=== PATIENT | male | born 1970 | race African-American/Black ===

== ENCOUNTER 2018-04-08 20:30 | Inpatient (IN) | payer MEDICAID, OTHER ==
[2018-04-08] MEDS ORDERED: fentaNYL* 50 MCG/ML 2 ML VIAL (100 MCG VIAL) IV ONE (20:51)
[2018-04-08] MEDS ORDERED: Nitroglycerin 2% OINT* 1 GM PAK TOPICAL ONE (20:51)
[2018-04-08] MEDS ORDERED: nitroGLYCERIN DRIP* 25,000 MCG/250 ML BTL IV ONE (21:37)
[2018-04-08 21:39] LABS: ABS Basophils 0.1 10^3/ul (0-0.2); ABS Eosinophils 0.1 10^3/ul (0-0.6); ABS Monocytes 0.3 10^3/ul (0-0.8); ABS Neutrophils 2.1 10^3/ul (1.5-7.7); ABS Nucleated RBC 0 10^3/ul; Eosinophil % 1.2 % (0-6); Hematocrit 39 % (42-52); Hemoglobin 13.3 g/dl (14.0-18.0); Lymphocyte % 44.2 % (25-47); Mean Corpuscular HGB Conc 34 g/dl (31-36); Mean Corpuscular Hemoglobin 30 pg (27-31); Mean Corpuscular Volume 87 fL (80-94); Mean Platelet Volume 6.3 um3 (7.4-10.4); Nucleated Red Blood Cells % 0.1; Platelet Count 320 10^3/ul (150-450); Red Blood Count 4.48 10^6/ul (4.0-5.4); Red Cell Distribution Width 13 % (10.5-15); White Blood Count 4.4 10^3/ul (3.5-10.8)
[2018-04-08] MEDS ORDERED: Morphine INJ* 10 MG/ML 1 ML CARPUJECT IV ONE (21:39)
[2018-04-08] MEDS ORDERED: Heparin DRIP 25,000 UNITS(*) 25,000 UNITS/500 ML BAG IVPB ONE ×2 (21:39→22:00)
[2018-04-08] MEDS ORDERED: nitroGLYCERIN DRIP* 25,000 MCG in PREMIX* 0 ML IV ONE (21:39)
--- NOTE | 2018-04-08 21:49 | RAD ---
Indication: LEFT side chest pain radiating to the jaw and arm for 1.5 hours. History of coronary artery disease with previous myocardial infarctions. History of tobacco use. Comparison: No relevant prior exams available on the [facility] PACS for comparison. Technique: Upright AP 2112 hours Report: Clear lungs and pleural spaces. Negative for pneumothorax. The heart, pulmonary vasculature, and mediastinal contours are unremarkable. Unremarkable osseous structures and soft tissue contours. IMPRESSION: No evidence for acute intrathoracic disease.
[2018-04-08] MEDS ORDERED: Heparin VIAL(*) 5000 UNITS/ML VIAL (FIVE THOUSAND) IV SCH (22:00)
[2018-04-08] MEDS ORDERED: Heparin DRIP 25,000 UNITS(*) 25,000 UNITS/500 ML BAG IV SCH (22:30)
[2018-04-08 22:49] LABS: EGFR Non-African American 70.4 (>60)
[2018-04-08] MEDS ORDERED: Morphine VIAL* 4 MG/ML VIAL (1 ml vial) IV ONE (23:00)
[2018-04-08] MEDS ORDERED: Heparin DRIP 25,000 UNITS(*) 25,000 UNITS/500 ML BAG IVPB SCH (23:00)
[2018-04-08] MEDS ORDERED: fentaNYL* 50 MCG/ML 2 ML VIAL (100 MCG VIAL) IV SLOW PU ONE (23:53)
--- NOTE | 2018-04-09 01:42 | ED ---
Mars Perez Julia, scribed for Earle Huerta MD on 04/08/18 at 2053 . HPI Chest Pain - HPI Summary HPI Summary: This patient is a 48 year old M BIBA to [facility] with a chief complaint of sudden sharp chest pain radiating down left arm and into jaw starting about a half hour ago with tingling in the hands. Pain is 7/10 in severity. Chest pain resolved with Nitro x2, per EMS but has now returned as an aching pain. Reports mild SOB, and currently resolved diaphoresis. Denies nausea, recent illness, abdominal pain, and changes in appetite. PMHX of two MN and three stents. Last stent placed in 2009. One stent has 30-40% blockage a few years ago , according to patient. Current symptoms similar to previous MN. Allergic to ASA. Medications include metoprolol and simvastatin. Treated in [facility] for last MN. - History of Current Complaint Chief Complaint: EDChestPainROMI Time Seen by Provider: 04/08/18 20:44 Hx Obtained From: Patient Onset/Duration: Started Hours Ago, Still Present Time of Onset: 19:30 Timing: Lasting Hours Pain Intensity: 7 Pain Scale Used: 0-10 Numeric Chest Pain Location: Mid Sternal Chest Pain Radiates: Yes Chest Pain Radiates To:: Arm, Jaw Character: Sharp/Stabbing Aggravating Factor(s): Nothing Alleviating Factor(s): NTG 123, EMS Tx Associated Signs and Symptoms: Positive: Chest Pain, Tingling, Shortness of Breath, Diaphoresis. Negative: Nausea, Abdominal Pain Related History: Similar Episode/Dx as: - MN - Allergy/Home Medications Allergies/Adverse Reactions: Allergies Allergy/AdvReac Type Severity Reaction Status Date / Time aspirin Allergy Rash Verified 04/08/18 20:47 Home Medications: Home Medications Amlodipine Besylate 04/08/18 [History] Benztropine Mesylate 04/08/18 [History] Bupropion Xl 04/08/18 [History] Clopidogrel 04/08/18 [History] Gabapentin 04/08/18 [History] Haloperidol 04/08/18 [History] Lisinopril 04/08/18 [History] Metoprolol Succinate XL TAB* 04/08/18 [History] Nicotine Gum 04/08/18 [History] Nicotine Patch 04/08/18 [History] Nitroglycerin TAB 0.4 MG* 04/08/18 [History] Pantoprazole Sodium 04/08/18 [History] Prazosin CAP* 04/08/18 [History] Simvastatin 04/08/18 [History] Trazodone HCl 04/08/18 [History] Ventolin HFA Inhaler* 04/08/18 [History] PMH/Surg Hx/FS Hx/Imm Hx Cardiovascular History: Reports: Hx Coronary Artery Disease, Hx Hypertension, Hx Myocardial Infarction EENT History: Denies: Hx Deafness Infectious Disease History: No Infectious Disease History: Denies: Traveled Outside the [place] in Last 30 Days - Family History Known Family History: Positive: Hypertension - Social History Hx Substance Use: Yes Hx Tobacco Use: Yes Smoking Status (MU): Former Smoker Type: Cigarettes Review of Systems Positive: Skin Diaphoresis Positive: Chest Pain Positive: Shortness Of Breath Negative: Abdominal Pain, Nausea Positive: Myalgia - arm pain and jaw pain All Other Systems Reviewed And Are Negative: Yes Physical Exam - Summary Physical Exam Summary: Appearance: Well-appearing, Well-nourished, lying in bed comfortably Skin: Warm, dry, no obvious rash Eyes: sclera anicteric, no conjunctival pallor ENT: mucous membranes moist, pharynx appears normal Neck: Supple, nontender Respiratory: Clear to auscultation, no signs of respiratory distress Cardiovascular: Normal S1, S2. No murmurs. Normal distal pulses in tibial and radial bilaterally. Abdomen: Soft, nontender, normal active bowel sounds present Musculoskeletal: Normal, Strength/ROM Intact Neurological: A&Ox3, awake and alert, mentation is normal, speech is fluent and appropriate Psychiatric: affect is normal, does not appear anxious or depressed Triage Information Reviewed: Yes Vital Signs On Initial Exam: Initial Vitals Temp Pulse Resp BP Pulse Ox 98.2 F 70 16 132/88 99 04/08/18 20:44 04/08/18 20:44 04/08/18 20:44 04/08/18 20:44 04/08/18 20:44 Vital Signs Reviewed: Yes Diagnostics - Vital Signs Vital Signs Temp Pulse Resp BP Pulse Ox 04/08/18 20:44 98.2 F 70 16 132/88 99 - Laboratory Lab Results: Lab Results 04/08/18 Range/Units 21:32 WBC 4.4 (3.5-10.8) 10^3/ul RBC 4.48 (4.0-5.4) 10^6/ul Hgb 13.3 L (14.0-18.0) g/dl Hct 39 L (42-52) % MCV 87 (80-94) fL MCH 30 (27-31) pg MCHC 34 (31-36) g/dl RDW 13 (10.5-15) % Plt Count 320 (150-450) 10^3/ul MPV 6.3 L (7.4-10.4) um3 Neut % (Auto) 46.7 (38-83) % Lymph % (Auto) 44.2 (25-47) % [place] % (Auto) 6.6 (0-7) % Eos % (Auto) 1.2 (0-6) % Baso % (Auto) 1.3 (0-2) % Absolute Neuts (auto) 2.1 (1.5-7.7) 10^3/ul Absolute Lymphs (auto) 2.0 (1.0-4.8) 10^3/ul Absolute Monos (auto) 0.3 (0-0.8) 10^3/ul Absolute Eos (auto) 0.1 (0-0.6) 10^3/ul Absolute Basos (auto) 0.1 (0-0.2) 10^3/ul Absolute Nucleated RBC 0 10^3/ul Nucleated RBC % 0.1 Result Diagrams: 04/08/18 21:32 04/08/18 21:32 Lab Statement: Any lab studies that have been ordered have been reviewed, and results considered in the medical decision making process. - Radiology CXR Radiology Interpretation Completed By: Radiologist - No evidence for acute intrathoracic disease. ED Physician has reviewed this report. Re-Evaluation - Re-Evaluation First Re-Evaluation Time: 21:37 Change: Unchanged Comment: Patient is still having pain. Will place on IV nitro and heparin. His pain only went from 8 to 6 with topical ntg and he says it is identical in character and location to when he had MN. EKG is equivocal with deep Q waves in anteroseptal leads and slight ST elevation in V2 and V3, but we do not have any old tracing for comparison. Intermediate Frame Tender attempting to get prior tracings from [facility] in [place] where he was treated for MN in the past. Second Re-Evaluation Time: 23:51 Change: Unchanged Chest Pain Course/Dx - Diagnoses Provider Diagnoses: Acute coronary syndrome - Provider Notifications Discussed Care Of Patient With: Kojo Byrd - interventional cardiology Time Discussed With Above Provider: 00:10 Instructed by Provider To: Other - Will review patiet's records and will call back. At 00:22 Dr. Byrd suggests admission by hospitalist and will consult. uRdy hospitalist, agrees to admit at 00:54 Discharge - Sign-Out/Discharge Documenting (check all that apply): Discharge/Admit/Transfer - Discharge Plan Condition: Guarded Disposition: ADMITTED TO [facility] Referrals: No Primary Care Phys,NOPCP [Primary Care Provider] - - Billing Disposition and Condition Condition: GUARDED Disposition: [facility] The documentation as recorded by the Mars diane Julia accurately reflects the service I personally performed and the decisions made by me, Earle Huerta MD.
[2018-04-09] MEDS ORDERED: Nitroglycerin TAB 0.4 MG* 0.4 MG TAB SL PRN (02:32)
[2018-04-09] MEDS ORDERED: Acetaminophen TAB* 325 MG PO PRN (02:51)
[2018-04-09] MEDS ORDERED: Nicotine GUM* 2 MG PO PRN (03:00)
[2018-04-09] MEDS ORDERED: Albuterol HFA INHALER* 8 gm MDI INH PRN (03:00)
[2018-04-09 05:31] LABS: ABS Basophils 0 10^3/ul (0-0.2); ABS Eosinophils 0 10^3/ul (0-0.6); ABS Monocytes 0.4 10^3/ul (0-0.8); ABS Neutrophils 1.7 10^3/ul (1.5-7.7); ABS Nucleated RBC 0 10^3/ul; Eosinophil % 0.7 % (0-6); Hematocrit 37 % (42-52); Hemoglobin 12.8 g/dl (14.0-18.0); Lymphocyte % 57.7 % (25-47); Mean Corpuscular HGB Conc 34 g/dl (31-36); Mean Corpuscular Hemoglobin 30 pg (27-31); Mean Corpuscular Volume 87 fL (80-94); Mean Platelet Volume 6.4 um3 (7.4-10.4); Nucleated Red Blood Cells % 0.1; Platelet Count 306 10^3/ul (150-450); Red Blood Count 4.28 10^6/ul (4.0-5.4); Red Cell Distribution Width 13 % (10.5-15); White Blood Count 5.2 10^3/ul (3.5-10.8)
[2018-04-09 05:42] LABS: EGFR Non-African American 69.7 (>60)
--- NOTE | 2018-04-09 06:40 | HP ---
ADMITTING HISTORY AND PHYSICAL: DATE OF ADMISSION: 04/09/18. CHIEF COMPLAINT: Chest pain. HISTORY OF PRESENT ILLNESS/HOSPITAL COURSE: The patient is a 48-year-old - [place] gentleman with a history of hypertension, asthma, and CAD with three stents placed back at [facility], who presents with above chief complaint of chest pain. 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 He mentioned he suddenly started having some chest pain left sided that radiated to his left shoulder and arms as well as jaw. EMS was called and some PVCs were seen en route and with some questions of ST segment elevation in leads V1 or V2. Of note, the patient mentions that he was in his usual state of health and admitted himself in [facility] back in February for his alcohol addiction. He mentions that he usually lives in the city of [place] and usually follows with his physician at [facility]. However, currently in [place] in [facility] and being transitioned to be discharged to [facility] in [place] when he has done with rehab given that he mentions that, he is most likely going to relapse if he goes back to [place]. On presentation to the ED, a 12-lead was found, which suggests some possible ST segment elevation in leads V1 or V3. However, given that the patient has not been in our hospital until this visit, an EKG was obtained from old records at [facility] in [place], and from an EKG done in 04/26/13, it seems that the concerning ST segments in the aforementioned leads are old and in fact extends up until V4 in the anteroseptal leads, and these are nothing new. Furthermore, Dr. Huerta has spoken prior to my evaluation of the patient with Dr. Byrd, who also did not have the old EKG data from [place], who believed that the ST segments are probably old finding given only mildly elevated troponins on presentation, which has subsequently normalized. The patient kept on complaining of chest pain and was placed on a nitrate drip as well as heparin drip and I will continue this as well given his high risk and known cardiac history. The patient mentions that he similarly presented at [facility] in [place] back in January of this year and had a cardiac catheterization done, which revealed 40% blockage in one of his old stents and hence possible in-stent thrombosis was diagnosed and he was placed back on Plavix and some changes in his antihypertensive medications remain, and he was placed back on Plavix because of concern of in-stent thrombosis. PAST MEDICAL AND SURGICAL HISTORY: Past medical and surgical history of CAD, status post OH with three stents, hypertension, asthma, schizophrenia, alcohol abuse, polysubstance abuse with previous history of cocaine and opiate abuse, unstable angina. ALLERGIES: NSAIDS, which causes hives, and denies any other allergies, or any other food or medications. FAMILY HISTORY: Hypertension in his mother and father. Diabetes in his mother and father. SOCIAL HISTORY: He mentions that he quit smoking about five months ago, but previous to this he was smoking about 1.5 pack per day for 15 years. He has had a history of alcohol abuse, which he is currently in rehab for. Previous history of cocaine use. Last use was six years ago as well as oral opiate abuse. Last dose is unknown. He is single and has two children and will be transitioned to a alf house from [facility]. REVIEW OF SYSTEMS: The patient mentions that he still has a chest pain of 8/10 , but denied any shortness of breath. He denied any recent headache, dizziness , fevers, chills, nausea, vomiting, increased cough, sputum production, abdominal pain, diarrhea, constipation, pain and/or increased frequency on urination, myalgias, arthralgias, throat pain or new skin lesions. The rest of the 14-point review of systems are otherwise unremarkable. PHYSICAL EXAMINATION GENERAL: The patient is awake, alert, and oriented x3, not in acute distress. VITAL SIGNS: The most recent vital signs of record with blood pressure of 107/ 77, heart rate of 60 per minute, 13 per minute respiratory rate. HEENT: Normocephalic, atraumatic. PERRLA. Extraocular muscles intact. Negative for icterus. Moist oral mucosa. Negative throat erythema. NECK: Soft and supple with no cervical lymphadenopathy, no JVD. CHEST: Clear to auscultation bilaterally. Good air entry. No wheezes, rales or rhonchi. HEART: S1, S2 within normal limits. Regular rate and rhythm. No murmurs, rubs or gallops. ABDOMEN: Soft, nondistended, nontender. Normoactive bowel sounds x4 quadrants. EXTREMITIES: No cyanosis, clubbing or edema. PSYCHIATRIC: No active psychosis, depression, suicidal or homicidal ideations. DIAGNOSTIC STUDIES/LAB DATA: Laboratories and imaging have been reviewed. Please see chart for details. ASSESSMENT AND PLAN: Are as follows: 1. Chest pain with a history of coronary artery disease, with a SCAR score of 3. The patient is certainly at higher risk with mildly elevated troponin on presentation with known possible in-stent thrombosis at 40% blockage according to the patient back in January, which will need to be confirmed with [facility] s. We will continue the patient on Plavix because of his allergies to ASPIRIN. We will continue heparin drip as well as nitroglycerin drip as well as simvastatin. Given his previous opiate addiction and problems, I will not elect to give p.r.n. Morphine at this time given he is on a Nitro drip, and we will continue watchful waiting. We will place the patient on p.r.n. Tylenol for pain. We will trend cardiac enzymes for two more times. 2. Schizophrenia. The patient has ordered haloperidol decanoate and currently on benztropine. 3. History of asthma. Continue albuterol p.r.n. 4. Hypertension. Continue metoprolol and lisinopril, and we will continue watchful waiting. 5. Depression. The patient does not have any suicidal ideation or homicidal ideation. We will continue trazodone and bupropion. 6. DVT prophylaxis. The patient is on heparin drip given relatively high SCAR score with current cardiac history on presentation, possibly unstable angina. Consider calling assistant principal in a.m. for official consult. We will defer with primary team. 7. Disposition. For PT eval and we will recommend cardiology consultation given extensive cardiac history and possible in-stent thrombosis as related to by patient. [id number]/[facility] #: [id number] [facility]
[2018-04-09] MEDS: Gabapentin CAP(*) 300 MG PO SCH ×2 (08:42→13:45)
[2018-04-09] MEDS ORDERED: BuPROPion XL* 150 MG TAB.XL PO SCH (09:00)
[2018-04-09] MEDS ORDERED: Benztropine TAB* 2 MG PO SCH (09:00)
[2018-04-09] MEDS ORDERED: amLODIPine TAB* 5 MG PO SCH (09:00)
[2018-04-09] MEDS ORDERED: Lisinopril TAB* 10 MG PO SCH (09:00)
[2018-04-09] MEDS ORDERED: Metoprolol Succinate XL TAB* 50 MG PO SCH (09:00)
[2018-04-09] MEDS ORDERED: Nicotine PATCH 14 MG/24 HR* PATCH TRANSDERM SCH (09:00)
[2018-04-09] MEDS ORDERED: Clopidogrel TAB* 75 MG PO SCH (09:00)
--- NOTE | 2018-04-09 12:28 | ECHO ---
Patient: PATTIE WALTON [facility] Rec#: [id number] : 1970 Date: 04/09/2018 Age: 48y Height: 182.88 cm / 72.0 in Weight: 93.89 kg / 206.9 lbs Sex: M BSA: 2.16 Room#: ICU3 Admit Date#: 04/09/2018 Type: Inpatient Referring: Marjorie Webber MD Reading: Hussain Suarez MD Petroleum Transport Driver: Bea Langley [facility] Transthoracic Echocardiogram Indication: ACS BP: 111/74 HR: 49 Rhythm: Bradycardia Findings History: HTN,asthma,CAD with prior PCI,currently in an addiction recovery program,schizophrenic,former cigarette smoker. Technical Comments: The study quality is good. Completed at 0930. Left Ventricle: The left ventricular chamber size is normal. Mild concentric left ventricular hypertrophy is observed. There is mildly decreased left ventricular systolic function. The estimated ejection fraction is 45-50%. Abnormal left ventricular diastolic function is observed. The apical anterior, apical lateral, and apical inferior wall segments are hypokinetic (score 2). Overall wallmotion score index is 2.00 Left Atrium: The left atrial chamber size is normal. Right Ventricle: The right ventricular cavity size is normal. The right ventricular global systolic function is normal. Right Atrium: The right atrial cavity size is normal. Aortic Valve: The aortic valve is trileaflet. There is no evidence of aortic valve thickening. There is no evidence of aortic regurgitation. There is no evidence of aortic stenosis. Mitral Valve: The mitral valve leaflets are mildly thickened. There is mild mitral regurgitation. There is no evidence of mitral stenosis. Tricuspid Valve: The tricuspid valve leaflets are normal. Unable to estimate the right ventricular systolic pressure. No pulmonary hypertension is noted. There is no tricuspid stenosis. Pulmonic Valve: The pulmonic valve appears normal. There is no evidence of pulmonic regurgitation. There is no pulmonic stenosis. Pericardium: The pericardium appears normal. Aorta: There is no dilatation of the ascending aorta. There is no dilatation of the aortic arch. There is no dilation of the aortic root. Pulmonary Artery: The main pulmonary artery appears normal. Conclusions Mild concentric left ventricular hypertrophy is observed. There is mildly decreased left ventricular systolic function. The estimated ejection fraction is 45-50%. The apical anterior, apical lateral, and apical inferior wall segments are hypokinetic (score 2). The right ventricular global systolic function is normal. There is no evidence of aortic stenosis. There is mild mitral regurgitation. Unable to estimate the right ventricular systolic pressure. The pericardium appears normal. Compared to echo report from 2017, there is little change Measurements Name Value Normal Range RVIDd (AP) 2D 2.8 cm (0.9 - 2.6) RVDdMajor (2D) 4.2 cm (2.2 - 4.4) RAd ISD 4CH 4.4 cm (3.4 - 4.9) RA (A4C)W 4.3 cm (2.9 - 4.6) IVSd (2D) 1.3 cm (0.6 - 1) LVPWd (2D) 1.3 cm (0.6 - 1) LVIDd (2D) 4.3 cm (3.6 - 5.4) LVIDs (2D) 3.5 cm - LV FS (2D) 19 % (25 - 45) Aortic Annulus 2.1 cm (1.4 - 2.6) Ao root diameter (2D) 2.7 cm (2.1 - 3.5) Ascending Ao 2.8 cm (2.1 - 3.4) Aortic arch 2.6 cm (1.8 - 3.4) Descending Ao 0.7 cm - LA dimension (AP) 2D 3.9 cm (2.3 - 3.8) LAd ISD 4CH 5.3 cm (2.9 - 5.3) LA ISD 4CH W 3.9 cm (2.5 - 4.5) Name Value Normal Range LA ESV SP 4CH (A/L) 48 ml - LA ESV SP 2CH (A/L) 28 ml - LA ESV BP (A/L) 39 ml - LA ESV BP (A/L) index 18.2 ml/m2 - LA ESV SP 4CH (MOD) 45 ml - LA ESV SP 2CH (MOD) 27 ml - Name Value Normal Range MV E-wave Vmax 0.7 m/sec - MV deceleration time 229 msec - MV A-wave Vmax 0.9 m/sec - MV E:A ratio 0.78 ratio - LV septal e' Vmax 0.08 m/sec - LV lateral e' Vmax 0.06 m/sec - LV E:e' septal ratio 8.75 ratio - LV E:e' lateral ratio 11.67 ratio - Name Value Normal Range AV Vmax 1.4 m/sec - AV VTI 30.8 cm - AV peak gradient 77.95 mmHg - AV mean gradient 3.84 mmHg - LVOT Vmax 1.1 m/sec - LVOT VTI 25.5 cm - LVOT peak gradient 4.89 mmHg - LVOT mean gradient 1.75 mmHg - Name Value Normal Range MR Vmax 4.6 m/sec - MR VTI 186.5 cm - Name Value Normal Range PV Vmax 0.7 m/sec - PV peak gradient 1.76 mmHg - Wallmotion BAS Not Seen BA Not Seen BAL Not Seen BALWINDER Not Seen BI Not Seen BIS Not Seen MAS Not Seen MA Not Seen MAL Not Seen MIL Not Seen SD Not Seen MIS Not Seen Not Seen AA Hypokinetic AL Hypokinetic AI Hypokinetic APEX Hypokinetic
[2018-04-09] MEDS ORDERED: Regadenoson* 0.4 MG/5 ML SYRINGE ONE (12:53)
--- NOTE | 2018-04-09 13:09 | RAD ---
Edited for charges. INDICATION: Chest pain, previous myocardial infarction. Previous angioplasty and stenting. Abnormal EKG. COMPARISON: No relevant prior exams available on the [facility] PACS for comparison. TECHNIQUE: 10.200 mCi of Tc-99m Myoview were administered IV. SPECT images of the heart were obtained. Later on the same day. Under the direction of Dr. Ledesma, the patient was given an IV injection of a pharmacologic stress agent. Subsequently, the patient was given an IV injection of 26.300 mCi Tc-99m Myoview. SPECT images of the heart were obtained and a gated wall motion study was performed. FINDINGS: Gated wall motion images were obtained at stress and demonstrate global hypokinesia most marked at the apex. The calculated left ventricular ejection fraction is 48 % at stress. Estimated LEFT ventricular end diastolic volume is 186 mL. TID 1.11. Large apical and apical through the basilar anterior wall perfusion defect at stress with only mild marginal reversal at the basilar segment at rest. No additional compelling LEFT ventricular myocardial perfusion defects at stress or rest. IMPRESSION: 1. Large apical and apical through the mid to basilar anterior wall infarct with only minimal margin of reversibility at rest. 2. Global hypokinesia most marked at the apex with below normal estimated LEFT ventricular ejection fraction of 48%. 3. Dilated LEFT ventricle with estimated end-diastolic volume of 186 mL at stress. ASSESSMENT: High risk based on the nuclear portion specifically due to the large fixed perfusion defect and LV dilatation. Based on imaging criteria from ACC/AHA 2002 Guideline Update for the Management of Patients With Chronic Stable Angina Table 23. Noninvasive Risk Stratification. MTDD
[2018-04-09 14:13] VITALS: BP 135/97
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
[2018-04-09] MEDS ORDERED: Atorvastatin* 10 MG TAB PO SCH (17:00)
[2018-04-09] MEDS ORDERED: traZODone TAB* 100 MG PO SCH (21:00)
[2018-04-09] MEDS ORDERED: Prazosin CAP* 1 MG PO SCH (21:00)
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
== END 2018-04-09 15:00 | disposition home or self-care (01) | DRG 198 ==
LOC: ED 20:30 → ICU 04-09 02:30
PROVIDERS: ADMIT Student in an Organized Health Care Education/Training Program; ATTEND Internal Medicine
DX: R07.9 Chest pain, unspecified (principal); T82.855A Stenosis of coronary artery stent, initial encounter; I25.10 Atherosclerotic heart disease of native coronary artery without angina pectoris; F41.9 Anxiety disorder, unspecified; J45.909 Unspecified asthma, uncomplicated; F20.9 Schizophrenia, unspecified; I10 Essential (primary) hypertension; F10.10 Alcohol abuse, uncomplicated; F32.9 Major depressive disorder, single episode, unspecified; Y90.9 Presence of alcohol in blood, level not specified; Y71.3 Surgical instruments, materials and cardiovascular devices (including sutures) associated with adverse incidents; I49.3 Ventricular premature depolarization; F19.10 Other psychoactive substance abuse, uncomplicated; F14.90 Cocaine use, unspecified, uncomplicated; Z95.5 Presence of coronary angioplasty implant and graft; I25.2 Old myocardial infarction; Z88.6 Allergy status to analgesic agent; Z82.49 Family history of ischemic heart disease and other diseases of the circulatory system; Z83.3 Family history of diabetes mellitus; Z87.891 Personal history of nicotine dependence; Z79.02 Long term (current) use of antithrombotics/antiplatelets; Y92.9 Unspecified place or not applicable
CPT/HCPCS: 36415; 71045; 78452; 80053; 80307; 82565; 84484; 84520; 85025; 85379; 85730; 87641; 93005; 93017; 93306; 99285; A9270-GY; A9502; J1644; J2270; J2785; J3010

== ENCOUNTER 2018-04-25 16:08 | Emergency (ER) | payer OTHER ==
[2018-04-25 16:14] VITALS: BP 149/98
--- NOTE | 2018-04-25 18:29 | UC ---
Calista Perez Jade, scribed for Guille Wheat MD on 04/25/18 at 1654 . Ear Complaint HPI - HPI Summary HPI Summary: Pt is a 48 y/o male who presents to [facility] c/o left ear pain. He states the pain started today at 2:00, and radiates to his jaw. Pt states his ear feels infected , and if there is water in his ears. Pain is described as 8/10 in severity, and is sharp and stabbing in qualities. He denies any runny nose or teeth pain. Pt denies any recent swimming. - History of Current Complaint Chief Complaint: UCEar Stated Complaint: EAR PAIN Time Seen by Provider: 04/25/18 16:34 Hx Obtained From: Patient Onset/Duration: Sudden Onset, Lasting Hours - Since 2:00 AM, Still Present Severity Currently: Severe Pain Intensity: 8 Pain Scale Used: 0-10 Numeric Alleviating Factors: Nothing Related History: Smoking - Allergies/Home Medications Allergies/Adverse Reactions: Allergies Allergy/AdvReac Type Severity Reaction Status Date / Time aspirin Allergy Rash Verified 04/25/18 16:14 PMH/Surg Hx/FS Hx/Imm Hx Cardiovascular History: Cardiac Disease, Hypertension, Myocardial Infarction Respiratory History: Asthma Psychological History: Schizophrenia, Other - Alcohol and opioid abuse Other Psychological History: . - Surgical History Surgical History: None - Family History Known Family History: Positive: Hypertension, Diabetes - Social History Alcohol Use: None Substance Use Type: Marijuana Substance Use Comment - Amount & Last Used: last used November Smoking Status (MU): Heavy Every Day Tobacco Smoker Type: Cigarettes Have You Smoked in the Last Year: Yes - Immunization History Most Recent Influenza Vaccination: Fall 2016 Most Recent Pneumonia Vaccination: Never Review of Systems Constitutional: Negative - Fever ENT: Negative - Runny nose, tooth pain, Ear Ache All Other Systems Reviewed And Are Negative: Yes Physical Exam - Summary Physical Exam Summary: General: well-appearing, no pain distress Skin: warm, color reflects adequate perfusion, dry Head: normal Eyes: EOMI, QUIN ENT: Right ear cerumen impaction. Left TM mildly erythematous. Ear canal moist. Tenderness to palpation of left trachus and with traction of pinna. Neck: supple, nontender Respiratory: CTA, breath sounds present Cardiovascular: RRR Abdomen: soft, nontender Bowel: present Musculoskeletal: normal, strength/ROM intact Neurological: sensory/motor intact, A&O x3 Psychological: affect/mood appropriate Triage Information Reviewed: Yes Vital Signs: Initial Vital Signs Temp 98.7 F 04/25/18 16:12 Pulse 82 04/25/18 16:12 Resp 18 04/25/18 16:12 BP 149/98 04/25/18 16:12 Pulse Ox 99 04/25/18 16:12 Vital Signs Reviewed: Yes Ear Complaint Course/Dx - Course Course Of Treatment: Medications reviewed. Allergies noted. BP noted and advised to follow up with PCP - Differential Dx/Diagnosis Provider Diagnoses: LEFT Otitis externa AND OTITIS MEDIA. RIGHT EAR cerumen impaction. HTN Discharge - Sign-Out/Discharge Documenting (check all that apply): Discharge/Admit/Transfer - Discharge - Discharge Plan Condition: Stable Disposition: HOME Prescriptions: Amoxicillin/Clavulanate TAB* [Augmentin TAB 875*] 875 mg PO BID #20 tab Carbamide Peroxide 6.5% OTIC* [DEBROX 6.5% Otic*] 5 drop RIGHT EAR BID #1 bottle Neomyc/Polym/HC 1% OTIC SUSP* [Cortisporin Otic Susp 1%*] 4 drop LEFT EAR QID # 1 btl Patient Education Materials: Otitis Externa (ED), Cerumen Impaction (ED), Ear Infection (ED) Referrals: [facility] [Outside] Additional Instructions: FOLLOW UP WITH YOUR DOCTOR IF NOT COMPLETELY IMPROVED. GET RECHECKED FOR ANY WORSENING OF YOUR CONDITION OR QUESTIONS OR CONCERNS. - Billing Disposition and Condition Condition: STABLE Disposition: Home The documentation as recorded by the Calista diane Jade accurately reflects the service I personally performed and the decisions made by me, Guille Wheat MD.
== END 2018-04-25 16:51 | disposition home or self-care (01) ==
LOC: UCEAST 16:08
DX: H60.92 Unspecified otitis externa, left ear (principal); H66.92 Otitis media, unspecified, left ear; H61.21 Impacted cerumen, right ear; I10 Essential (primary) hypertension; I25.2 Old myocardial infarction; F17.210 Nicotine dependence, cigarettes, uncomplicated; Z88.6 Allergy status to analgesic agent
CPT/HCPCS: 99212; G0463

== ENCOUNTER 2018-04-29 23:19 | Observation (INO) | payer OTHER ==
[2018-04-29] MEDS ORDERED: Morphine VIAL* 4 MG/ML VIAL (1 ml vial) IV ONE (23:42)
[2018-04-29] MEDS ORDERED: Metoclopramide IV* 5 MG/ML 2 ML VIAL IV SLOW PU ONE (23:43)
[2018-04-30 00:19] LABS: ABS Basophils 0.1 10^3/ul (0-0.2); ABS Eosinophils 0 10^3/ul (0-0.6); ABS Lymphocytes 2.7 10^3/ul (1.0-4.8); ABS Monocytes 0.4 10^3/ul (0-0.8); ABS Neutrophils 2.4 10^3/ul (1.5-7.7); ABS Nucleated RBC 0 10^3/ul; Eosinophil % 0.3 % (0-6); Hematocrit 39 % (42-52); Hemoglobin 13.2 g/dl (14.0-18.0); Lymphocyte % 48.3 % (25-47); Mean Corpuscular HGB Conc 34 g/dl (31-36); Mean Corpuscular Hemoglobin 30 pg (27-31); Mean Corpuscular Volume 87 fL (80-94); Mean Platelet Volume 6.5 um3 (7.4-10.4); Nucleated Red Blood Cells % 0.1; Platelet Count 328 10^3/ul (150-450); Red Blood Count 4.44 10^6/ul (4.00-5.40); Red Cell Distribution Width 14 % (10.5-15); White Blood Count 5.6 10^3/ul (3.5-10.8)
[2018-04-30 00:24] LABS: INR 0.98 (0.77-1.02)
[2018-04-30 00:39] LABS: EGFR Non-African American 66.9 (>60)
--- NOTE | 2018-04-30 01:20 | ED ---
Rosemarie Perez Emily, scribed for Carisa Hummel MD on 04/29/18 at 2343 . HPI Chest Pain - HPI Summary HPI Summary: This patient is a 48 year old M BIBA to [facility] with a chief complaint of L lateral CP radiating to L arm that began at 2230. The patient rates the pain 2/ 10 in severity. Symptoms aggravated by nothing. Symptoms alleviated by EMS treatment. Patient reports tingling in L fingers, SOB, and nausea. Patient has a history of cardiac stent placement, with the most recent stent placed in 2009. - History of Current Complaint Chief Complaint: EDChestWallPain Time Seen by Provider: 04/29/18 23:27 Hx Obtained From: Patient Onset/Duration: Started Hours Ago, Atraumatic, Still Present Time of Onset: 22:30 Timing: Constant Initial Severity: Mild Current Severity: Mild Pain Intensity: 2 Pain Scale Used: 0-10 Numeric Chest Pain Location: Left Lateral Chest Pain Radiates: Yes Chest Pain Radiates To:: Arm Aggravating Factor(s): Nothing Alleviating Factor(s): EMS Tx Associated Signs and Symptoms: Positive: Tingling, Shortness of Breath, Nausea - Additional Pertinent History Primary Care Physician: [id number] - Allergy/Home Medications Allergies/Adverse Reactions: Allergies Allergy/AdvReac Type Severity Reaction Status Date / Time aspirin Allergy Rash Verified 04/29/18 23:33 ibuprofen [From Motrin] Allergy Unknown Verified 04/29/18 23:33 Reaction Details tramadol [From Ultram] Allergy Unknown Verified 04/29/18 23:33 Reaction Details PMH/Surg Hx/FS Hx/Imm Hx Previously Healthy: No Endocrine/Hematology History: Denies: Hx Diabetes Cardiovascular History: Reports: Hx Angina, Hx Coronary Artery Disease - stents , Hx Hypercholesterolemia, Hx Hypertension, Hx Myocardial Infarction Denies: Hx Valvular Heart Disease Respiratory History: Reports: Hx Asthma Denies: Hx Chronic Obstructive Pulmonary Disease (COPD) Musculoskeletal History: Reports: Hx Back Problems Sensory History: Reports: Hx Contacts or Glasses Denies: Hx Deafness, Hx Hearing Aid Opthamlomology History: Reports: Hx Contacts or Glasses Neurological History: Reports: Hx Headaches, Hx Migraine Psychiatric History: Reports: Hx Anxiety, Hx Attention Deficit Hyperactivity Disorder, Hx Depression, Hx Post Traumatic Stress Disorder, Hx Inpatient Treatment, Hx Schizophrenia, Hx Substance Abuse Denies: Hx Eating Disorder, Hx Panic Disorder, Hx Bipolar Disorder, Hx Suicide Attempt, Hx of Violent Episodes Against Others - Surgical History Surgery Procedure, Year, and Place: elbow sx, stent placement Hx Anesthesia Reactions: No Infectious Disease History: No Infectious Disease History: Denies: Hx of Known/Suspected MRSA, Hx Shingles, Hx Tuberculosis, Traveled Outside the [place] in Last 30 Days - Family History Known Family History: Positive: Hypertension, Diabetes - Social History Occupation: Unemployed Lives: Assisted Living Alcohol Use: None Hx Substance Use: Yes Substance Use Type: Reports: None Substance Use Comment - Amount & Last Used: last used November Hx Tobacco Use: Yes Smoking Status (MU): Former Smoker Type: Cigarettes Have You Smoked in the Last Year: Yes Review of Systems Positive: Chest Pain Positive: Shortness Of Breath Positive: Nausea Neurological: Other - Positive tingling in L fingers All Other Systems Reviewed And Are Negative: Yes Physical Exam - Summary Physical Exam Summary: VITAL SIGNS: Reviewed. GENERAL: Patient is a well-developed and nourished male who is lying comfortable in the stretcher. Patient is not in any acute respiratory distress. HEAD AND FACE: No signs of trauma. No ecchymosis, hematomas or skull depressions. No sinus tenderness. EYES: PERRLA, EOMI x 2, No injected conjunctiva, no nystagmus. EARS: Hearing grossly intact. Ear canals and tympanic membranes are within normal limits. MOUTH: Oropharynx within normal limits. NECK: Supple, trachea is midline, no adenopathy, no JVD, no carotid bruit, no c- spine tenderness, neck with full ROM. CHEST: Symmetric, no tenderness at palpation LUNGS: Clear to auscultation bilaterally. No wheezing or crackles. CVS: Regular rate and rhythm, S1 and S2 present, no murmurs or gallops appreciated. ABDOMEN: Soft, non-tender. No signs of distention. No rebound no guarding, and no masses palpated. Bowel sounds are normal. EXTREMITIES: FROM in all major joints, no edema, no cyanosis or clubbing. NEURO: Alert and oriented x 3. No acute neurological deficits. Speech is normal and follows commands. SKIN: Dry and warm Triage Information Reviewed: Yes Vital Signs On Initial Exam: Initial Vitals Temp Pulse Resp BP Pulse Ox 98.2 F 66 18 113/67 96 04/29/18 23:30 06/24/18 23:30 04/29/18 23:30 04/29/18 23:30 04/29/18 23:30 Vital Signs Reviewed: Yes Diagnostics - Vital Signs Vital Signs Temp Pulse Resp BP Pulse Ox 04/29/18 23:30 98.2 F 66 18 113/67 96 - Laboratory Result Diagrams: 04/30/18 00:01 04/30/18 00:01 Lab Statement: Any lab studies that have been ordered have been reviewed, and results considered in the medical decision making process. - Radiology CXR Radiology Interpretation Completed By: ED Physician - CXR reveals, per ED physician, no acute disease. - EKG 2316 Cardiac Rate: NL - 67 BPM EKG Rhythm: Sinus Rhythm EKG Interpretation: Anteroseptal ST elevation in V1 through V3 and Q waves which are both old Chest Pain Course/Dx - Course Course Of Treatment: This patient is a 48 year old M BIBA to [facility] with a chief complaint of L lateral CP radiating to L arm that began at 2230. Bloodwork and UA obtained. CXR reveals, per ED physician, no acute disease. EKG reveals nml sinus rhythm at [address] elevation in V1 through V3 and Q waves which are both old. In the ED course, the patient received Reglan and Morphine. Consult with Dr. Pugh (hospitalist) at 0112. He agrees to admit pt for further evaluation. The patient is agreeable with this plan. - Diagnoses Provider Diagnoses: Chest pain, rule out acute myocardial infarction - Provider Notifications Discussed Care Of Patient With: Chris Pugh Time Discussed With Above Provider: 01:12 Instructed by Provider To: Other - Consult with Dr. Pugh (hospitalist) at 0112. He agrees to admit pt for further evaluation. Discharge - Sign-Out/Discharge Documenting (check all that apply): Discharge/Admit/Transfer - Admit - Discharge Plan Condition: Stable Disposition: ADMITTED TO [facility] documentation as recorded by the Rosemarie diane Emily accurately reflects the service I personally performed and the decisions made by , Carisa Hummel MD.
--- NOTE | 2018-04-30 02:08 | HP ---
H&P (Free Text) History and Physical: PCP: [facility] Date/Time: 04/30/2018 0110 CC: chest pain HPI: Mr Magaña is a 48YO male HX CAD/AR/stents x3 w/ aspirin allergy who presents for the 3rd time this month for chest pain. Tonight while lying in bed he developed sudden onset of sharp, non-exertional L-sided severe chest pain radiating to the L neck & LUE associated with SOB, palpitations, light- headedness, & sweating, but no nausea. There were no noted exacerbating factors. Pain was relieved with the addition of oxygen via EMS. He denies cough , congestion, F/C, or other issues. He states one of his stents is blocked and "needs to be replaced" and reports having an appointment May 15 for cardiac cath in [place]. Review of records confirms a cardiac cath from January with 40-50% in-stent restenosis of a diagonal. Please note this is an interval H&P. The original dated 04/26/2018 will be copied at the end. 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 PMedHx, PSurgHx, SocHx, & FamHx: reviewed & unchanged compared to H&P dated . Ambulatory Orders Nursing to reconcile. Amlodipine Besylate [Norvasc 5 mg tab] 5 mg PO DAILY 04/08/18 Benztropine Mesylate 2 mg PO DAILY 04/08/18 BuPROPion XL* [Bupropion XL*] 150 mg PO DAILY 04/08/18 Clopidogrel TAB* [Plavix TAB*] 75 mg PO DAILY 04/08/18 Gabapentin CAP(*) [Neurontin 300 CAP(*)] 300 mg PO TID 04/08/18 Lisinopril TAB* [Prinivil TAB 10 MG*] 20 mg PO DAILY 04/08/18 Metoprolol Succinate XL TAB* [Toprol XL TAB*] 50 mg PO DAILY 04/08/18 Nicotine PATCH 14 MG/24 HR* 14 mg TRANSDERM DAILY 04/08/18 Nitroglycerin TAB 0.4 MG* 0.4 mg SL Q5M PRN 04/08/18 Pantoprazole Sodium [Protonix] 40 mg PO DAILY 04/08/18 Prazosin CAP* [Minipress CAP*] 1 mg PO BEDTIME 04/08/18 Simvastatin TAB(NF) [Zocor 20 MG (NF)] 20 mg PO 1700 04/08/18 traZODone TAB* [Desyrel TAB*] 150 mg PO BEDTIME 04/08/18 Haloperidol Decanoate* [Haldol Decanoate*] 75 mg IM SEE INSTRUCTIONS #0 Naltrexone INJ [Vivitrol INJ] 380 mg IM MONTHLY 04/09/18 Albuterol HFA INHALER* [Ventolin HFA Inhaler*] 2 puff INH Q4H PRN #0 04/26/18 Nicotine GUM* 2 mg PO Q2H PRN #0 04/26/18 Allergies aspirin Allergy (Verified 04/29/18 23:33) Rash ibuprofen [From Motrin] Allergy (Verified 04/29/18 23:33) Unknown Reaction Details tramadol [From Ultram] Allergy (Verified 04/29/18 23:33) Unknown Reaction Details ROS: as above, otherwise reviewed and all were negative vitals: Vital Signs Temp 36.8 C 04/29/18 23:30 Pulse 66 04/29/18 23:30 Resp 12 04/30/18 01:00 BP 101/70 04/30/18 00:58 Pulse Ox 96 04/29/18 23:30 Intake & Output 04/29/18 04/29/18 04/30/18 11:59 23:59 11:59 Weight 97.522 kg Constitutional: NAD, normally developed, well-nourished black male HEENM: atraumatic; sclera/conjunctiva: anicteric/clear; hearing: clinically intact; oropharynx: clear, mucosa moist Neck: soft tissue: non-tender; thyroid: normal Pulmonary: clear to auscultation bilaterally, good aeration, no accessory muscle use CV: RR/RR, normal S1S2, no carotid bruit, no jugular venous distention, 2+ B DP/ PT, no edema Abdominal: soft, non-distended, non-tender, no rebound/guarding/rigidity, normoactive bowel sounds, no hepatosplenomegaly or masses, no costovertebral angle tenderness Musculoskeletal: general: grossly intact, non-tender Integumental: normal appearance and texture of exposed skin, healed anterior L shoulder scar Psychiatric orientation: AA&O to PPS affect: somnolent mood: cooperative eye contact: fair to poor content: reliable responses: mildly slowed insight: fair Testing: Lab Results 04/30/18 04/30/18 04/30/18 Range/Units 00:01 00:01 00:01 WBC 5.6 (3.5-10.8) 10^3/ul RBC 4.44 (4.00-5.40) 10^6/ul Hgb 13.2 L (14.0-18.0) g/dl Hct 39 L (42-52) % MCV 87 (80-94) fL MCH 30 (27-31) pg MCHC 34 (31-36) g/dl RDW 14 (10.5-15) % Plt Count 328 (150-450) 10^3/ul MPV 6.5 L (7.4-10.4) um3 Neut % (Auto) 43.5 (38-83) % Lymph % (Auto) 48.3 H (25-47) % Republic % (Auto) 7.0 (0-7) % Eos % (Auto) 0.3 (0-6) % Baso % (Auto) 0.9 (0-2) % Absolute Neuts (auto) 2.4 (1.5-7.7) 10^3/ul Absolute Lymphs (auto) 2.7 (1.0-4.8) 10^3/ul Absolute Monos (auto) 0.4 (0-0.8) 10^3/ul Absolute Eos (auto) 0 (0-0.6) 10^3/ul Absolute Basos (auto) 0.1 (0-0.2) 10^3/ul Absolute Nucleated RBC 0 10^3/ul Nucleated RBC % 0.1 INR (Anticoag Therapy) 0.98 (0.77-1.02) APTT 25.7 L (26.0-36.3) seconds Sodium 140 (135-145) mmol/L Potassium 3.8 (3.5-5.0) mmol/L Chloride 104 (101-111) mmol/L Carbon Dioxide 29 (22-32) mmol/L Anion Gap 7 (2-11) mmol/L BUN 7 (6-24) mg/dL Creatinine 1.16 (0.67-1.17) mg/dL Est GFR ( Amer) 81.0 (>60) Est GFR (Non-Af Amer) 66.9 (>60) BUN/Creatinine Ratio 6.0 L (8-20) Glucose 104 H (70-100) mg/dL Lactic Acid (0.5-2.0) mmol/L Calcium 9.0 (8.6-10.3) mg/dL Magnesium 2.1 (1.9-2.7) mg/dL Total Bilirubin 0.50 (0.2-1.0) mg/dL AST 19 (13-39) U/L ALT 14 (7-52) U/L Alkaline Phosphatase 41 (34-104) U/L Total Creatine Kinase 380 H (10-223) U/L Troponin I 0.01 (<0.04) ng/mL Total Protein 6.1 L (6.4-8.9) g/dL Albumin 4.0 (3.2-5.2) g/dL Globulin 2.1 (2-4) g/dL Albumin/Globulin Ratio 1.9 (1-3) / Range/Units 00:01 WBC (3.5-10.8) 10^3/ul RBC (4.00-5.40) 10^6/ul Hgb (14.0-18.0) g/dl Hct (42-52) % MCV (80-94) fL MCH (27-31) pg MCHC (31-36) g/dl RDW (10.5-15) % Plt Count (150-450) 10^3/ul MPV (7.4-10.4) um3 Neut % (Auto) (38-83) % Lymph % (Auto) (25-47) % Republic % (Auto) (0-7) % Eos % (Auto) (0-6) % Baso % (Auto) (0-2) % Absolute Neuts (auto) (1.5-7.7) 10^3/ul Absolute Lymphs (auto) (1.0-4.8) 10^3/ul Absolute Monos (auto) (0-0.8) 10^3/ul Absolute Eos (auto) (0-0.6) 10^3/ul Absolute Basos (auto) (0-0.2) 10^3/ul Absolute Nucleated RBC 10^3/ul Nucleated RBC % INR (Anticoag Therapy) (0.77-1.02) APTT (26.0-36.3) seconds Sodium (135-145) mmol/L Potassium (3.5-5.0) mmol/L Chloride (101-111) mmol/L Carbon Dioxide (22-32) mmol/L Anion Gap (2-11) mmol/L BUN (6-24) mg/dL Creatinine (0.67-1.17) mg/dL Est GFR ( Amer) (>60) Est GFR (Non-Af Amer) (>60) BUN/Creatinine Ratio (8-20) Glucose (70-100) mg/dL Lactic Acid 0.6 (0.5-2.0) mmol/L Calcium (8.6-10.3) mg/dL Magnesium (1.9-2.7) mg/dL Total Bilirubin (0.2-1.0) mg/dL AST (13-39) U/L ALT (7-52) U/L Alkaline Phosphatase (34-104) U/L Total Creatine Kinase (10-223) U/L Troponin I (<0.04) ng/mL Total Protein (6.4-8.9) g/dL Albumin (3.2-5.2) g/dL Globulin (2-4) g/dL Albumin/Globulin Ratio (1-3) ECG, personally reviewed: NSR rate 67, J-point elevation V2-3, inverted T-wave V4-5, flattened T-waves V6/I/II/III/AVF; similar to comparison 04/26/2018 CXR, personally reviewed: no acute process chemical NST 04/09/2018: IMPRESSION: 1. Large apical and apical through the mid to basilar anterior wall infarct with only minimal margin of reversibility at rest. 2. Global hypokinesia most marked at the apex with below normal estimated LEFT ventricular ejection fraction of 48%. 3. Dilated LEFT ventricle with estimated end-diastolic volume of 186 mL at stress. ASSESSMENT: High risk based on the nuclear portion specifically due to the large fixed perfusion defect and LV dilatation. Impression: 48M HX CAD/AR/stent x3 presents for the 3rd time this month with chest pain; had high risk NST 04/09, appointment for cath in [place] 05/15/2018 DIAGNOSIS & PLAN Primary chest pain r/o ACS : telemetry : continue clopidogrel : trend troponin : supplemental oxygen : supportive care Secondary HTN : continue lisinopril, metorprolol, & amlodipine HLD : continue simvastatin schizophrenia : continue benztropine & haloperidol decanoate once reconciled HX polysubstance abuse hepatitis C depression/anxiety : continue bupropion XL GERD : continue pantoprazole Admission Rational: observation for r/o ACS DVTp: heparin SQ, SCDs Code Status: full HCP: Rodrigo doan
[2018-04-30] MEDS ORDERED: Albuterol 2.5 MG/3 ML NEB.SOL* (0.083%) INH PRN (05:54)
[2018-04-30] MEDS ORDERED: Acetaminophen TAB* 325 MG PO PRN (05:54)
[2018-04-30] MEDS ORDERED: Ondansetron 40 MG VIAL* 2 MG/ML 20 ML VIAL IV PRN (05:54)
[2018-04-30] MEDS ORDERED: Melatonin 3 MG TAB PO PRN (05:54)
[2018-04-30] MEDS ORDERED: NS 0.9% 1000 ML* 1,000 ML IV SCH (06:00)
[2018-04-30] MEDS ORDERED: Nicotine GUM* 2 MG PO PRN (06:17)
[2018-04-30] MEDS ORDERED: Albuterol HFA INHALER* 8 gm MDI INH PRN (06:17)
[2018-04-30 06:48] LABS: ABS Basophils 0 10^3/ul (0-0.2); ABS Eosinophils 0 10^3/ul (0-0.6); ABS Lymphocytes 2.7 10^3/ul (1.0-4.8); ABS Monocytes 0.4 10^3/ul (0-0.8); ABS Neutrophils 1.7 10^3/ul (1.5-7.7); ABS Nucleated RBC 0 10^3/ul; Eosinophil % 0.8 % (0-6); Hematocrit 39 % (42-52); Hemoglobin 13.1 g/dl (14.0-18.0); Lymphocyte % 55.5 % (25-47); Mean Corpuscular HGB Conc 34 g/dl (31-36); Mean Corpuscular Hemoglobin 30 pg (27-31); Mean Corpuscular Volume 88 fL (80-94); Mean Platelet Volume 6.4 um3 (7.4-10.4); Nucleated Red Blood Cells % 0.1; Platelet Count 308 10^3/ul (150-450); Red Blood Count 4.38 10^6/ul (4.00-5.40); Red Cell Distribution Width 13 % (10.5-15); White Blood Count 4.8 10^3/ul (3.5-10.8)
[2018-04-30 06:59] LABS: EGFR Non-African American 81.3 (>60)
[2018-04-30] MEDS ORDERED: Haloperidol Decanoate* 50 MG/ML AMP IM SCH (07:00)
[2018-04-30] MEDS ORDERED: Naltrexone INJ 380 MG IM SCH (07:00)
[2018-04-30 07:14] LABS: INR 0.97 (0.77-1.02)
[2018-04-30] MEDS: CMCS: Pantoprazole TAB (NF) 40 MG TAB PO SCH ×2 (07:33→07:35)
[2018-04-30 07:40] VITALS: BP 107/59
--- NOTE | 2018-04-30 07:50 | RAD ---
INDICATION: Chest pain COMPARISON: April 08, 2018 TECHNIQUE: An AP portable view obtained at 0026 hours is submitted. FINDINGS: Bones/Soft Tissues: There are no acute bony findings. Cardiomediastinal: The cardiomediastinal silhouette is normal. Lungs: There are no infiltrates. Pleura: There are no pleural effusions. Other: None IMPRESSION: NO ACTIVE DISEASE.
[2018-04-30] MEDS ORDERED: Lisinopril TAB* 10 MG PO SCH (09:00)
[2018-04-30] MEDS ORDERED: Benztropine TAB* 2 MG PO SCH (09:00)
[2018-04-30] MEDS ORDERED: Clopidogrel TAB* 75 MG PO SCH (09:00)
[2018-04-30] MEDS ORDERED: amLODIPine TAB* 5 MG PO SCH (09:00)
[2018-04-30] MEDS ORDERED: Gabapentin CAP(*) 300 MG PO SCH (09:00)
[2018-04-30] MEDS ORDERED: BuPROPion XL* 150 MG TAB.XL PO SCH (09:00)
[2018-04-30] MEDS ORDERED: Metoprolol Succinate XL TAB* 50 MG PO SCH (09:00)
[2018-04-30] MEDS ORDERED: Docusate CAP* 100 MG PO SCH (09:00)
--- NOTE | 2018-04-30 10:19 | CONS ---
CC: Dr. Lowe CARDIOLOGY CONSULTATION REPORT: DATE OF CONSULT: 04/30/18 INDICATION FOR CONSULTATION: Chest pain, coronary artery disease. HISTORY OF PRESENT ILLNESS: Patient is a 48-year-old gentleman who was admitted 3 times in the last month with chest pain. Patient has known coronary artery disease. I had seen the patient in consult ation a month ago with chest pain. At that time, he had negative troponins. He had a stress test on 04/08/18, which demonstrated infarct to the anterior wall but no significant areas of ischemia. He was discharged on medical therapy. Patient was readmitted to the hospital last week with chest pain, again negative troponins, negative EKG changes, and was discharged home on increased medications. Ellyn lauren comes in today with another episode of chest pain. Patient describes this episode as a stabbing ch est pain in the center of his chest. It lasted on and off for about 3 hours and then went to see the nurse. The nurse insisted that he come to the emergency room. Patient was admitted to the hospital for observation. Patient ruled out for myocardial infarction. Again patient had no ischemic EKG ch anges. This morning, patient is pain free. PAST MEDICAL HISTORY: Significant for coronary artery disease, history of stents to his LAD. Shanon curiel did have a cardiac catheterization in January of this year at [facility] in [place]. At that time, his stent showed 50% restenosis and an FFR evaluation at that time was normal. OUTPATIENT MEDICATIONS: 1. Trazodone 150 mg q. h.s. 2. Simvastatin 20 mg a day. 3. Prazosin 1 mg a day. 4. Pantoprazole 40 mg a day. 5. Nitroglycerin patch daily. 6. Metoprolol succinate 50 mg daily. 7. Lisinopril 20 mg a day. 8. Gabapentin 300 mg 3 times a day. 9. Plavix 75 mg a day. 10. Wellbutrin 150 mg daily. 11. Amlodipine 5 mg a day. 12. Naloxone as directed. 13. Allopurinol as directed. 14. Albuterol inhaler. ALLERGIES: To ASPIRIN, IBUPROFEN, TRAMADOL. SOCIAL HISTORY: He has a history of alcohol and cocaine use in the distant past. He is a previous oker. He is currently in rehab. PHYSICAL EXAM: Height is 6 feet, weight 207 pounds. Temperature 98, heart rate is 61, blood pressur e 107/59, respiratory rate is 16, oxygen saturation 99% on room air. Sclerae anicteric. Oropharynx is pink. No erythema. Carotids are 2+ without bruits. JVD is normal. Thyroid is normal. Cardiac Exam: S1, S2 without any murmurs, rubs, or gallops. Lungs are clear to auscultation bilaterally. T here is no dullness to percussion. Abdomen is soft, nontender, nondistended with normoactive bowel s ounds. Extremities: Show no edema. He has 2+ pulses throughout. Patient is awake, alert, and orie nted. He moves all 4 extremities equally. DIAGNOSTIC STUDIES/LAB DATA: Laboratory studies: CBC within normal limits. Chemistries within miryam l limits. Troponins are negative x2. AST and ALT are normal. EKG showed normal sinus rhythm. 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 No change from previous EKGs. IMPRESSION: This is a 48-year-old gentleman who was admitted to the hospital with atypical chest raheel n. His troponins are negative. The EKG shows no ischemic changes. At this point, I do not think any other cardiac workup is necessary. Patient will continue on his ou tpatient medication. He is already on maximum medical therapy. Patient will follow up with his outpatient deputy city clerk in [place]. I discussed the patient with Dr. Lowe. [id number]/[facility] #: [id number]
[2018-04-30] MEDS ORDERED: Atorvastatin* 10 MG TAB PO SCH (17:00)
[2018-04-30] MEDS ORDERED: traZODone TAB* 50 MG TAB PO SCH (21:00)
[2018-04-30] MEDS ORDERED: Prazosin CAP* 1 MG PO SCH (21:00)
--- NOTE | 2018-05-01 05:46 | DS ---
DISCHARGE SUMMARY: DATE OF ADMISSION: 04/30/18 DATE OF DISCHARGE: 04/30/18 PRIMARY CARE PROVIDER: None, following with the [facility], [facility]. STUDIO COUCH FRAME BUILDER: At [facility] in [place], [place]. He has a followup in 05/15/18. PRIMARY DIAGNOSIS: Chest pain. SECONDARY DIAGNOSES: Include: 1. History of schizophrenia. 2. Coronary artery disease. 3. Hypertension. 4. Tobacco abuse. 5. History of polysubstance abuse. 6. Hepatitis C. 7. History of alcohol abuse. MEDICATIONS AT DISCHARGE: Unchanged from admission include: 1. Amlodipine 5 mg daily. 2. Benztropine 2 mg daily. 3. Plavix 75 mg daily. 4. Gabapentin 300 mg 3 times a day. 5. Haloperidol 75 mg IM every 2 weeks. 6. Lisinopril 20 mg daily. 7. Metoprolol succinate 50 mg daily. 8. Nicotine gum as needed. 9. Nitroglycerin sublingual as needed. 10. Pantoprazole 40 mg daily. 11. Prazosin 1 mg at bedtime. 12. Simvastatin 20 mg daily. 13. Trazodone 150 mg at bedtime. 14. Albuterol 2 puffs every 4 hours as needed. 15. Vivitrol IM 380 mg monthly. 16. Wellbutrin XR 150 mg daily. PERTINENT LABORATORY STUDIES: Include troponin I 0.01, increased to 0.03 at its peak. HISTORY OF PRESENT ILLNESS AND HOSPITAL COURSE: This is a 48-year-old man, now presenting to [facility] for his third time this month with chest pain. His previous workup has included a cardiac stress test and an echocardiogram on 04/09/18, most notable for area of infarct without reversibility. Additionally, patient had undergone a cardiac catheterization with FFR at [facility] in [place] in February of 2018. At that time, FFR was negative, thought to have about 40% to 50 % in-stent restenosis from his previous cardiac catheterization. No additional intervention was taken at that time. On this hospital stay, he had been at rest in bed and had some substernal chest pain, lasted approximately 2 to 3 hours, presented to the hospital, admitted and had negative troponins. The chest pain resolved spontaneously. In recalling the event, the patient notes that the chest pain was not severe, but thought that the incident was amplified by the nurse who had been given direction to send to hospital for chest pain. The patient had previously declined cardiac catheterization in his hospital stay on the 04/26/18 and was seen again in conjunction with Dr. Suarez from Cardiology, who does not recommend a cardiac catheterization at this time secondary to normal troponins after multiple hours of chest pain, unchanged EKG , and stress test from earlier this month. The patient is in agreement with this plan. I discussed with the patient and indicated he should return to the hospital with recurrent chest pain or worsening shortness of breath, nausea, vomiting, lightheadedness, loss of consciousness, bleeding from any source. He acknowledged understanding. I did encourage the patient to follow up with [facility], which he intend to do. He does have a followup with his hogshead press operator in the beginning of May as indicated above. TIME SPENT: Greater than 45 minutes were spent on discharge of the patient. At followup please; 1. Evaluate for continued medication adherence. The patient acknowledges that he is taking his medications, although he does have an ASPIRIN allergy. 2. the patient does follow up with his hogshead press operator for continued chronic management. 3. No other specific labs or vitals that need followup. [id number]/[facility] #: [id number] ANN MARIE
[2018-05-01] MEDS ORDERED: Heparin VIAL(*) 5000 UNITS/ML VIAL (FIVE THOUSAND) SUBCUT SCH (06:00)
== END 2018-04-30 11:02 | disposition home or self-care (01) ==
LOC: ED 23:19 → MEDTELE 04-30 01:14
PROVIDERS: ADMIT Hospitalist; ATTEND Internal Medicine
DX: R07.89 Other chest pain (principal); F20.9 Schizophrenia, unspecified; I25.10 Atherosclerotic heart disease of native coronary artery without angina pectoris; I10 Essential (primary) hypertension; F17.210 Nicotine dependence, cigarettes, uncomplicated; Z87.898 Personal history of other specified conditions; B18.2 Chronic viral hepatitis C; F10.21 Alcohol dependence, in remission; R06.02 Shortness of breath; Z95.5 Presence of coronary angioplasty implant and graft
CPT/HCPCS: 36415; 71045; 80053; 82550; 82565; 83605; 83735; 84484; 84520; 85025; 85610; 85730; 93005; 96374; 96375; 99283; A9270-GY; G0378; J2270; J2765

== ENCOUNTER 2018-05-07 00:20 | Emergency (ER) | payer OTHER ==
[2018-05-07] MEDS ORDERED: Cyclobenzaprine TAB* 10 MG PO ONE (00:36)
[2018-05-07] MEDS ORDERED: Ketorolac INJ* 60 MG/2 ML VIAL IM ONE (00:36)
[2018-05-07] MEDS ORDERED: oxyCODONE/Acetamin 5/325 MG* TAB PO ONE (01:20)
[2018-05-07 02:47] VITALS: BP 150/106
--- NOTE | 2018-05-07 03:08 | ED ---
Tabatha Perez Gabriel, scribed for Carisa Hummel MD on 05/07/18 at 0041 . Back Pain - HPI Summary HPI Summary: This patient is a 48 year old M presenting to [facility] c/o lower back pain that began at 2200 tonight. The patient rates the pain 8/10 in severity. Patient denies radiation into LE and incontinence. Pt was able to ambulate in the ED and states he has a hx of back issues. - History of Current Complaint Chief Complaint: EDBackInjuryPain Stated Complaint: LOWER BACK PAIN Time Seen by Provider: 05/07/18 00:31 Hx Obtained From: Patient Onset/Duration: Lasting Hours, Still Present Onset/Duration: Still Present Timing: Constant Back Pain Location: Is Diffuse Severity Initially: Moderate Severity Currently: Moderate Pain Intensity: 8 Pain Scale Used: 0-10 Numeric Associated Signs And Symptoms: Negative: Bladder Incontinence, Bowel Incontinence - Allergies/Home Medications Allergies/Adverse Reactions: Allergies Allergy/AdvReac Type Severity Reaction Status Date / Time aspirin Allergy Rash Verified 04/29/18 23:33 ibuprofen [From Motrin] Allergy Unknown Verified 04/29/18 23:33 Reaction Details tramadol [From Ultram] Allergy Unknown Verified 04/29/18 23:33 Reaction Details PMH/Surg Hx/FS Hx/Imm Hx Endocrine/Hematology History: Denies: Hx Diabetes Cardiovascular History: Reports: Hx Angina, Hx Coronary Artery Disease - stents , Hx Hypercholesterolemia, Hx Hypertension, Hx Myocardial Infarction Denies: Hx Valvular Heart Disease Respiratory History: Reports: Hx Asthma Denies: Hx Chronic Obstructive Pulmonary Disease (COPD) Musculoskeletal History: Reports: Hx Back Problems Sensory History: Reports: Hx Contacts or Glasses Denies: Hx Deafness, Hx Hearing Aid Opthamlomology History: Reports: Hx Contacts or Glasses Neurological History: Reports: Hx Headaches, Hx Migraine Psychiatric History: Reports: Hx Anxiety, Hx Attention Deficit Hyperactivity Disorder, Hx Depression, Hx Post Traumatic Stress Disorder, Hx Inpatient Treatment, Hx Schizophrenia, Hx Substance Abuse Denies: Hx Eating Disorder, Hx Panic Disorder, Hx Bipolar Disorder, Hx Suicide Attempt, Hx of Violent Episodes Against Others - Surgical History Surgery Procedure, Year, and Place: elbow sx, stent placement Hx Anesthesia Reactions: No Infectious Disease History: No Infectious Disease History: Denies: Hx of Known/Suspected MRSA, Hx Shingles, Hx Tuberculosis, Traveled Outside the [place] in Last 30 Days - Family History Known Family History: Positive: Hypertension, Diabetes - Social History Lives: With Family Alcohol Use: None Hx Substance Use: Yes Substance Use Type: Reports: None Substance Use Comment - Amount & Last Used: previous substance abuser-currently in tx Hx Tobacco Use: Yes Smoking Status (MU): Former Smoker Type: Cigarettes Have You Smoked in the Last Year: Yes Review of Systems Gastrointestinal: Negative - incontinece Negative: incontinence Positive: Other - back pain All Other Systems Reviewed And Are Negative: Yes Physical Exam - Summary Physical Exam Summary: VITAL SIGNS: Reviewed. GENERAL: Patient is a well-developed and nourished male who is lying comfortable in the stretcher. Patient is not in any acute respiratory distress. HEAD AND FACE: No signs of trauma. No ecchymosis, hematomas or skull depressions. No sinus tenderness. EYES: PERRLA, EOMI x 2, No injected conjunctiva, no nystagmus. EARS: Hearing grossly intact. Ear canals and tympanic membranes are within normal limits. MOUTH: Oropharynx within normal limits. NECK: Supple, trachea is midline, no adenopathy, no JVD, no carotid bruit, no c- spine tenderness, neck with full ROM. CHEST: Symmetric, no tenderness at palpation LUNGS: Clear to auscultation bilaterally. No wheezing or crackles. CVS: Regular rate and rhythm, S1 and S2 present, no murmurs or gallops appreciated. ABDOMEN: Soft, non-tender. No signs of distention. No rebound no guarding, and no masses palpated. Bowel sounds are normal. Back: lumbosacral tenderness. Positive bilateral straight leg test at 60 degrees EXTREMITIES: FROM in all major joints, no edema, no cyanosis or clubbing. NEURO: Alert and oriented x 3. No acute neurological deficits. Speech is normal and follows commands. SKIN: Dry and warm Triage Information Reviewed: Yes Vital Signs On Initial Exam: Initial Vitals Temp Pulse Resp BP Pulse Ox 98.2 F 75 18 131/91 98 05/07/18 00:22 05/07/18 00:22 05/07/18 00:22 05/07/18 00:22 05/07/18 00:22 Vital Signs Reviewed: Yes Diagnostics - Vital Signs Vital Signs Temp Pulse Resp BP Pulse Ox 05/07/18 00:22 98.2 F 75 18 131/91 98 - Laboratory Lab Statement: Any lab studies that have been ordered have been reviewed, and results considered in the medical decision making process. Re-Evaluation - Re-Evaluation First Eval Re-Evaluation Time: 01:20 Change: Worse Comment: Pt is complain of severe pain and swearing, while standing and walking. Back Pain Course/Dx - Course Assessment/Plan: This patient is a 48 year old M presenting to [facility] c/o lower back pain that began at 2200 tonight. The patient rates the pain 8/10 in severity. Patient denies radiation into LE and incontinence. Pt was able to ambulate in the ED and states he has a hx of back issues. Dx back pain. In the ED course the patient was given flexeril, toradol, and percocet. Pt is feeling better after medication. Patient will be discharged and follow up from PCP referral center. The patient is agreeable with this plan. - Diagnoses Provider Diagnoses: Back pain Discharge - Sign-Out/Discharge Documenting (check all that apply): Discharge/Admit/Transfer - Discharge Plan Condition: Stable Disposition: HOME Patient Education Materials: Back Pain (ED) Referrals: [facility] PHYSICIAN REFERRAL [Outside] - 3 Days Additional Instructions: RETURN TO THE ER FOR ANY NEW OR WORSENING SYMPTOMS The documentation as recorded by the Tabatha diane Gabriel accurately reflects the service I personally performed and the decisions made by me, Carisa Hummel MD.
== END 2018-05-07 02:48 | disposition home or self-care (01) ==
LOC: ED 00:20
DX: M54.5 Low back pain (principal); F17.210 Nicotine dependence, cigarettes, uncomplicated; Z88.6 Allergy status to analgesic agent; Z88.5 Allergy status to narcotic agent
CPT/HCPCS: 96372; 99283; A9270-GY; J1885

== ENCOUNTER 2018-05-08 22:21 | Emergency (ER) | payer OTHER ==
[2018-05-09] MEDS ORDERED: Cyclobenzaprine TAB* 10 MG PO ONE (00:10)
[2018-05-09] MEDS ORDERED: HYDROcodone/ACETAMIN 5-325 MG* 1 TAB PO ONE (00:11)
--- NOTE | 2018-05-09 00:35 | ED ---
Back Pain - HPI Summary HPI Summary: Patient complains of chronic left side lower back pain. History of chronic pain since October 2017. Denies any new trauma, radiation into bilateral legs , incontinence, urinary retention. Seen here for same 05/07/18. Was told to follow-up with primary care, states he has arranged an appointment on May 15. - History of Current Complaint Chief Complaint: EDBackInjuryPain Stated Complaint: BACK PAIN Time Seen by Provider: 05/08/18 23:25 Hx Obtained From: Patient Onset/Duration: Lasting Weeks Timing: Intermittent Back Pain Location: Is Discrete @ Severity Initially: Moderate Severity Currently: Moderate Pain Intensity: 8 Pain Scale Used: 0-10 Numeric Character: Dull, Aching, Throbbing Aggravating Symptom(s): Movement, Bending, Walking Alleviating Symptom(s): Rest, Position Associated Signs And Symptoms: Positive: Negative - Allergies/Home Medications Allergies/Adverse Reactions: Allergies Allergy/AdvReac Type Severity Reaction Status Date / Time aspirin Allergy Rash Verified 05/08/18 22:26 ibuprofen [From Motrin] Allergy Unknown Verified 05/08/18 22:26 Reaction Details tramadol [From Ultram] Allergy Unknown Verified 05/08/18 22:26 Reaction Details PMH/Surg Hx/FS Hx/Imm Hx Endocrine/Hematology History: Denies: Hx Diabetes Cardiovascular History: Reports: Hx Angina, Hx Coronary Artery Disease - stents , Hx Hypercholesterolemia, Hx Hypertension, Hx Myocardial Infarction Denies: Hx Valvular Heart Disease Respiratory History: Reports: Hx Asthma Denies: Hx Chronic Obstructive Pulmonary Disease (COPD) Musculoskeletal History: Reports: Hx Back Problems Sensory History: Reports: Hx Contacts or Glasses Denies: Hx Deafness, Hx Hearing Aid Opthamlomology History: Reports: Hx Contacts or Glasses Neurological History: Reports: Hx Headaches, Hx Migraine Psychiatric History: Reports: Hx Anxiety, Hx Attention Deficit Hyperactivity Disorder, Hx Depression, Hx Post Traumatic Stress Disorder, Hx Inpatient Treatment, Hx Schizophrenia, Hx Substance Abuse Denies: Hx Eating Disorder, Hx Panic Disorder, Hx Bipolar Disorder, Hx Suicide Attempt, Hx of Violent Episodes Against Others - Surgical History Surgery Procedure, Year, and Place: elbow sx, stent placement Hx Anesthesia Reactions: No Infectious Disease History: No Infectious Disease History: Denies: Hx of Known/Suspected MRSA, Hx Shingles, Hx Tuberculosis, Traveled Outside the [place] in Last 30 Days - Family History Known Family History: Positive: Hypertension, Diabetes - Social History Alcohol Use: None Hx Substance Use: Yes Substance Use Type: Reports: None Substance Use Comment - Amount & Last Used: previous substance abuser-currently in tx Hx Tobacco Use: Yes Smoking Status (MU): Former Smoker Type: Cigarettes Have You Smoked in the Last Year: Yes Review of Systems Constitutional: Negative Eyes: Negative ENT: Negative Cardiovascular: Negative Respiratory: Negative Gastrointestinal: Negative Genitourinary: Negative Positive: Other Skin: Negative Neurological: Negative Psychological: Normal All Other Systems Reviewed And Are Negative: Yes Physical Exam - Summary Physical Exam Summary: Patient flexes and extends bilateral lower extremities actively. PMS intact distally on bilateral lower extremities. Pain in left lower back with flexion of left hip. No ecchymosis, erythema, mass, tenderness, deformity noted to left lower back. Triage Information Reviewed: Yes Vital Signs On Initial Exam: Initial Vitals Temp Pulse Resp BP Pulse Ox 96.8 F 74 18 134/87 98 05/08/18 22:23 05/08/18 22:23 05/08/18 22:23 05/08/18 22:23 05/08/18 22:23 Vital Signs Reviewed: Yes Appearance: Positive: Well-Appearing Skin: Positive: Warm Head/Face: Positive: Normal Head/Face Inspection Eyes: Positive: Normal Neck: Positive: Supple Respiratory/Lung Sounds: Positive: Clear to Auscultation Cardiovascular: Positive: Normal Abdomen Description: Positive: Nontender Musculoskeletal: Positive: Normal Neurological: Positive: Normal Psychiatric: Positive: Normal AVPU Assessment: Alert - [place] Coma Scale Best Eye Response: 4 - Spontaneous Best Motor Response: 6 - Obeys Commands Best Verbal Response: 5 - Oriented Coma Scale Total: 15 Diagnostics - Vital Signs Vital Signs Temp Pulse Resp BP Pulse Ox 05/08/18 22:23 96.8 F 74 18 134/87 98 - Laboratory Lab Statement: Any lab studies that have been ordered have been reviewed, and results considered in the medical decision making process. Back Pain Course/Dx - Course Course Of Treatment: Patient complains of chronic left side lower back pain. History of chronic pain since October 2017. Denies any new trauma, radiation into bilateral legs, incontinence, urinary retention. Seen here for same . Was told to follow-up with primary care, states he has arranged an appointment on May 15. Patient flexes and extends bilateral lower extremities actively. PMS intact distally on bilateral lower extremities. Pain in left lower back with flexion of left hip. No ecchymosis, erythema, mass, tenderness , deformity noted to left lower back. Patient has appointment May 15 with primary care for follow-up. - Diagnoses Provider Diagnoses: Chronic back pain Discharge - Sign-Out/Discharge Documenting (check all that apply): Discharge/Admit/Transfer - Discharge Plan Condition: Stable Disposition: HOME Patient Education Materials: Chronic Back Pain (ED) Referrals: No Primary Care Phys,NOPCP [Primary Care Provider] - [facility] [address] [Outside] Additional Instructions: Follow-up with primary care. Return to the ED for any new or worsening symptoms - Billing Disposition and Condition Condition: STABLE Disposition: Home
[2018-05-09 00:51] VITALS: BP 113/74
== END 2018-05-09 00:50 | disposition home or self-care (01) ==
LOC: ED 22:21
DX: M54.5 Low back pain (principal); G89.29 Other chronic pain; Z87.891 Personal history of nicotine dependence; Z95.5 Presence of coronary angioplasty implant and graft; Z88.5 Allergy status to narcotic agent; Z88.6 Allergy status to analgesic agent
CPT/HCPCS: 99282; A9270-GY